=== PATIENT | female | born 1940 | race Caucasian/White ===

== ENCOUNTER 2023-09-17 13:27 | Emergency (ER) | payer MEDICARE, OTHER ==
[~2023-09-17] VITALS: Ht 162.6 cm; Wt 48.5 kg
[2023-09-17 13:27] VITALS: BP 139/86; PULSE 74; RESP 18; TEMP 98.4; O2SAT 92
[2023-09-17 14:00] VITALS: BP 141/80; PULSE 59; RESP 18; TEMP 98.4; O2SAT 92
[2023-09-17 14:30] VITALS: BP 168/89; PULSE 53; RESP 18; TEMP 98.4; O2SAT 92
[2023-09-17 15:22] VITALS: BP 148/89; PULSE 55; RESP 18; TEMP 98.4; O2SAT 98
== END 2023-09-17 15:23 | disposition home or self-care (01) ==
LOC: ER 13:27
DX: S09.90XA Unspecified injury of head, initial encounter (principal); G20.C Parkinsonism, unspecified; E07.9 Disorder of thyroid, unspecified; Z88.0 Allergy status to penicillin; W01.0XXA Fall on same level from slipping, tripping and stumbling without subsequent striking against object, initial encounter; Y93.89 Activity, other specified; Y92.89 Other specified places as the place of occurrence of the external cause; Y99.8 Other external cause status
CPT/HCPCS: 70450; 72125; 82948; 99284

== ENCOUNTER → 2024-03-05 | Outpatient (CLI) | payer MEDICARE, OTHER ==
[2024-03-05 15:14] LABS: BILIRUBIN,URINE NEGATIVE (NEGATIVE); LEUKOCYTE ESTERASE ,URINE TRACE (NEGATIVE); NITRATE,URINE NEGATIVE (NEGATIVE); UROBILINOGEN,URINE 0.2 E.U./dL (0.2)
[2024-03-05 15:16] LABS: MEAN CORP HGB 27.1 pg (26-34); MEAN CORP VOLUME 90.4 fL (78-100); RED BLOOD CELL 3.32 10^6/uL (4.00-5.20); RED CELL DISTRIBUTION WIDTH 17.3 % (11.5-14.5); WHITE BLOOD CELL 5.5 10^3/uL (4.5-11.0)
[2024-03-05 15:22] LABS: UA COLOR RED
[2024-03-05 15:23] LABS: APPEARANCE,URINE CLOUDY
[2024-03-05 15:45] LABS: ALBUMIN/GLOBULIN RATIO 0.833; ALKALINE PHOSPHATASE 99 U/L (50-136); ANION GAP 12.6; ASPARTATE AMINO TRANSFERASE 9 U/L (0-35); CALCIUM 8.7 mg/dL (8.4-10.5); CREATININE SERUM 1.88 mg/dL (0.59-1.40); EST GFR, NON-AA 25.6 (>/=60); GLUCOSE 82 mg/dL (74-106); POTASSIUM 3.6 mmol/L (3.6-5.2); SODIUM 140 mmol/L (132-145)
[2024-03-05 15:53] LABS: ALANINE AMINOTRANSFERASE(ML) < 6 U/L (12-78)
== END | disposition home or self-care (01) ==
LOC: LAB 14:33
PROVIDERS: ATTEND Nurse Practitioner Family
DX: E78.2 Mixed hyperlipidemia (principal); R82.90 Unspecified abnormal findings in urine
CPT/HCPCS: 36415; 80053; 81001; 84439; 84443; 85027; 87086